=== PATIENT | male | born 1985 | race Caucasian/White ===

== ENCOUNTER 2020-02-10 17:43 | Emergency (ER) | payer OTHER ==
[~2020-02-10] VITALS: Ht 162.6 cm; Wt 90.9 kg
[2020-02-10 19:05] LABS: HEMATOCRIT 46.1 % (42.0-52.0); HEMOGLOBIN 15.5 g/dL (13.5-18.0); MEAN CELL VOLUME 87 fl (78-100); MEAN CORPUSCULAR HEMOGLOBIN 29 pg (27-31); MEAN CORPUSCULAR HGB CONC 34 g/dL (33-37); MEAN PLATELET VOLUME 10.5 fl (7.4-10.4); PLATELET COUNT 252 K/mm3 (130-400); RED BLOOD COUNT 5.33 M/mm3 (4.20-5.60); RED CELL DISTRIBUTION WIDTH 13.7 % (11.5-14.5); WHITE BLOOD COUNT 18.2 K/mm3 (4.8-10.8)
[2020-02-10 19:09] LABS: NEUTROPHILS 85 % (42-75)
[2020-02-10 19:10] LABS: LYMPHOCYTE 8 % (20-51); MONOCYTE 5 % (3-10)
[2020-02-10 19:13] LABS: ALBUMIN 4.3 g/dL (3.5-5.0); POTASSIUM 3.7 mmol/L (3.5-5.1)
[2020-02-10 19:14] LABS: CALCIUM 9.4 mg/dL (8.3-10.5)
[2020-02-10 19:15] LABS: TOTAL PROTEIN 8.1 g/dL (6.4-8.3)
[2020-02-10 19:17] LABS: TOTAL BILIRUBIN 0.9 mg/dL (0.2-1.2)
[2020-02-10 19:24] LABS: STREP SCREEN NEGATIVE (NEGATIVE)
[2020-02-10 19:28] LABS: URINE APPEARANCE CLEAR; URINE COLOR YELLOW
[2020-02-10 19:29] LABS: PH-URINE 5.5 (5.0 - 8.0); URINE BILIRUBIN NEGATIVE (NEGATIVE); URINE BLOOD 50 ery/uL (NEGATIVE); URINE GLUCOSE NEGATIVE (NEGATIVE); URINE KETONE NEGATIVE (NEGATIVE); URINE LEUKOCYTE ESTERASE NEGATIVE (NEGATIVE); URINE MUCUS PRESENT (NOT PRESENT); URINE NITRATE NEGATIVE (NEGATIVE); URINE PROTEIN(semi-quant) NEGATIVE (NEGATIVE); URINE UROBILINOGEN NORMAL (NORMAL); URINE WBC 0-1 /hpf (0-3)
[2020-02-10] MEDS ORDERED: HYDROCHLOROTHIA1 T14 PO (19:29)
[2020-02-10] MEDS ORDERED: TYLENOL EXTRA500 M2 PO (19:29)
[2020-02-10] MEDS ORDERED: AUGMENTIN 875-1 EAC1 PO (20:30)
[2020-02-10 21:00] VITALS: BP 135/93
== END 2020-02-10 21:00 | disposition home or self-care (01) ==
LOC: ED 17:43
PROVIDERS: Nurse Practitioner Family
DX: J01.81 Other acute recurrent sinusitis (principal); J01.11 Acute recurrent frontal sinusitis; J32.0 Chronic maxillary sinusitis; Z20.828 Contact with and (suspected) exposure to other viral communicable diseases; Z98.84 Bariatric surgery status; Z88.6 Allergy status to analgesic agent; Z79.899 Other long term (current) drug therapy; Z79.1 Long term (current) use of non-steroidal anti-inflammatories (NSAID)
CPT/HCPCS: J0696

== ENCOUNTER 2021-10-03 10:30 | Emergency (ER) | payer OTHER ==
[~2021-10-03 10:30] MED LIST: AUGMENTIN 875-1 EAC1 PO; HYDROCHLOROTHIA1 T14 PO; TYLENOL EXTRA500 M2 PO
[2021-10-03] MEDS ORDERED: AMOXICILLIN AND1 TA2 PO (11:18)
[2021-10-03] MEDS ORDERED: NORCO 325 MG-51 TA1 PO (14:05)
[2021-10-03 14:39] VITALS: BP 151/100
== END 2021-10-03 14:27 | disposition home or self-care (01) ==
LOC: ED 10:30
DX: H65.91 Unspecified nonsuppurative otitis media, right ear (principal); I16.0 Hypertensive urgency; I10 Essential (primary) hypertension; Z79.899 Other long term (current) drug therapy; Z91.14 Patient's other noncompliance with medication regimen; Z20.822 Contact with and (suspected) exposure to COVID-19; Z28.310 Unvaccinated for COVID-19